=== PATIENT | female | born 1935 | race Caucasian/White ===

== ENCOUNTER → 2016-11-24 | Outpatient (CLI) | payer OTHER | LOC: BMCIMAGING 08:22 | PROVIDERS: ATTEND Internal Medicine | DX: Z12.31 Encounter for screening mammogram for malignant neoplasm of breast (principal); Z85.3 Personal history of malignant neoplasm of breast; Z90.11 Acquired absence of right breast and nipple | CPT/HCPCS: G0202-52 ==

== ENCOUNTER → 2017-08-05 | Outpatient (CLI) | payer OTHER ==
[~2017-08-05] MED LIST: IOPAMIDOL (ISOVUE-300) 100 ML BTL ONE
== END ==
LOC: FIMAGING 12:38
PROVIDERS: ATTEND Internal Medicine
DX: K57.30 Diverticulosis of large intestine without perforation or abscess without bleeding (principal); K46.9 Unspecified abdominal hernia without obstruction or gangrene; I70.0 Atherosclerosis of aorta; M51.36 Other intervertebral disc degeneration, lumbar region; M51.37 Other intervertebral disc degeneration, lumbosacral region; M46.96 Unspecified inflammatory spondylopathy, lumbar region
CPT/HCPCS: 74177; Q9967

== ENCOUNTER → 2017-10-04 | Outpatient (CLI) | payer OTHER ==
[~2017-10-04] MED LIST changes: +IOPAMIDOL (ISOVUE 370) 100 ML BTL IV ONE; -IOPAMIDOL (ISOVUE-300) 100 ML BTL ONE
== END ==
LOC: FIMAGING 14:57
PROVIDERS: ATTEND Internal Medicine
DX: I25.84 Coronary atherosclerosis due to calcified coronary lesion (principal)
CPT/HCPCS: 71275; 74175; Q9967

== ENCOUNTER 2018-03-24 08:08 | Day surgery (SDC) | payer OTHER ==
[2018-03-24] MEDS ORDERED: NS 1,000 ML IV ONE (08:09)
[2018-03-24] MEDS ORDERED: FAMOTIDINE 20 MG TAB PO ONE (08:09)
[2018-03-24] MEDS ORDERED: ASPIRIN EC 325 MG TAB PO ONE (08:09)
[2018-03-24] MEDS ORDERED: diphenhydrAMINE 25 MG CAP PO ONE ×2 (08:09→10:15)
[2018-03-24] MEDS ORDERED: DIAZEPAM 5 MG TAB PO ONE (08:09)
[2018-03-24 09:02] LABS: PLATELET COUNT 195 10^3/uL (150-400)
[2018-03-24 09:10] LABS: INR 1.05 (0.83-1.16); PROTIME(PATIENT) 13.9 SEC (12.0-15.0)
[2018-03-24] MEDS ORDERED: fentaNYL 100 MCG/2 ML INJ ONE (09:17)
[2018-03-24] MEDS ORDERED: LIDOCAINE 1% 300 MG/30 ML SDV ONE (09:17)
[2018-03-24] MEDS ORDERED: MIDAZOLAM 2 MG/2 ML VIAL ONE (09:18)
[2018-03-24] MEDS ORDERED: BUPIVACAINE 0.5% 30 ML SDV ONE (09:18)
[2018-03-24] MEDS ORDERED: LIDO/EPI 1% **for epidural** 30 ML SDV ONE (09:18)
--- NOTE | 2018-03-24 09:56 | PDPROPOC ---
Sedation Plan of Care Sedation Plan of Care: vital signs stable, mental status noted, patient educated of risks, benefits, alternatives, patient can tolerate sedation ASA Classification: ASA 2 Planned drugs: fentanyl, midazolam Mallampati Score: Class 1 Mallampati Reference Image: Patient passed 3-3-2 rule?: Yes
--- NOTE | 2018-03-24 10:07 | PDGENHP ---
History & Physical Chief Complaint: ICD at end of life. History of Present Illness: 82-year-old female with a history of a dual-chamber Biotronik ICD/pacemaker implanted for primary prevention and bradycardia. The current device is at elective replacement indicators. Pertinent Past, Social, Family History: Hypertrophic cardiomyopathy. Relevant Physical Exam: Alert and oriented x3, breathing easily and conversive, clear lungs to auscultation and percussion, regular rate and rhythm 1/6 systolic ejection murmur, no edema Cardiorespiratory Assessment: 82-year-old female with a history of hypertrophic cardiomyopathy and current ICD at elective replacement indicators. She is stable from a cardiovascular perspective to have an ICD generator change.
[2018-03-24] MEDS ORDERED: ceFAZolin 2 GM/DEXTROSE 100 ML IV ONE (10:15)
[2018-03-24] MEDS ORDERED: BACITRACIN IRRIGATION/NS 50,000 UNITS/1,000 ML BTL IRR ONE (10:15)
--- NOTE | 2018-03-24 11:32 | CPIP ---
DATE OF PROCEDURE: 03/24/2018 INDICATIONS: The patient is a pleasant 82-year-old female with a history of sick sinus syndrome and hypertrophic cardiomyopathy. She had a dual-chamber Biotronik ICD implanted in July of 2012. Th e current device is at elective replacement indicators. PROCEDURE: Implantable cardioverter defibrillator generator change. TECHNIQUE: Following informed consent, in the fasting state and after the administration of prophyla ctic antibiotics, the patient was brought to the cardiac catheterization laboratory. The left chest was prepped and draped in usual sterile fashion. 2% lidocaine was infiltrated into the skin overlyin g the previously placed ICD. Using a #10 blade, a 4 cm incision was made. This was carried down to the ICD capsule, which was ope khanh sharply. The device was then delivered from the field and disconnected from the leads. The pock et was irrigated. The new device was then brought to the field and all leads were affixed to the hea aj according to international editorial producer guidelines. The new device and the redundant portions of all leads wer e then placed back in the pocket. The pocket was then closed in 3 layers using 2 layers of interrupt ed suture with 2-0 and 3-0 Vicryl and finally running Stratafix for the skin. Steri-Strips and a dry dressing were applied. DEVICE INFORMATION: The existing leads were implanted July 27, 2012. The atrial lead is a [facility] 1882 TC 46 cm lead, serial #[id number] with sensed P waves of 2.2 mV and a capture threshol d of 0 1.8 V at 1.2 msec, and a lead impedance of 245 ohms. The high-voltage lead is a [employer] Marina ox Smart S 65 cm lead, model #001058, serial #[id number] with sensed R-waves 8.9 mV and a capture thres hold of 0.4 msec at 1 V with impedance of 480 ohms. The newly implanted device is a [employer] Iperia 7 DRT DF1 device, serial #[id number], model number [id number]. COMPLICATIONS: None. DISPOSITION: The patient be transferred to the [facility] and discharged home later today. /[id number]/MODL
--- NOTE | 2018-03-24 16:03 | CPEKG ---
Test Reason : OPEN Blood Pressure : / mmHG Vent. Rate : 082 BPM Atrial Rate : 070 BPM P-R Int : 197 ms QRS Dur : 156 ms QT Int : 470 ms P-R-T Axes : 094 -88 075 degrees QTc Int : 549 ms Atrial-ventricular dual-paced rhythm Confirmed by Mercedes Martinez ([id number]) on 03/24/2018 4:03:23 PM Referred By: Confirmed By:Mercedes Martinez
--- NOTE | 2018-03-24 16:10 | CPEKG ---
Test Reason : OPEN Blood Pressure : / mmHG Vent. Rate : 061 BPM Atrial Rate : 061 BPM P-R Int : 314 ms QRS Dur : 144 ms QT Int : 456 ms P-R-T Axes : 064 -18 -87 degrees QTc Int : 460 ms Atrial-paced rhythm Right bundle branch block Probable lateral infarct, age indeterminate Compared with 03/24/2018 at 8:40 am V pacing no longer present Confirmed by Mercedes Martinez ([id number]) on 03/24/2018 4:10:03 PM Referred By: Confirmed By:Mercedes Martinez
== END 2018-03-24 14:13 | disposition home or self-care (01) ==
LOC: FCATH 08:08
PROVIDERS: ATTEND Internal Medicine Cardiovascular Disease
PROC: 0JPT0PZ Removal of Cardiac Rhythm Related Device from Trunk Subcutaneous Tissue and Fascia, Open Approach (ICD-10-PCS; principal; 2018-03-24)
DX: Z45.010 Encounter for checking and testing of cardiac pacemaker pulse generator [battery] (principal); I49.5 Sick sinus syndrome; I42.2 Other hypertrophic cardiomyopathy
CPT/HCPCS: C1721; J0690; J2250; J3010